=== PATIENT | female | born 1965 | race American Indian/Alaskan Native ===

== ENCOUNTER 2017-12-05 08:48 | Outpatient (CLI) | payer OTHER ==
--- NOTE | 2017-12-05 09:23 | XRay Report ---
XRAY RIGHT SHOULDER THREE VIEWS: 12/05/17 08:48:00 CLINICAL: Right shoulder pain. FINDINGS: Normal glenohumeral alignment and normal glenohumeral joint. Normal AC joint. No fracture or dislocation. No bone lesion. Normal soft tissues. IMPRESSION: Normal.
== END 2017-12-05 08:49 | disposition home or self-care (01) ==
LOC: SPVIMAG 08:48
PROVIDERS: ATTEND Orthopaedic Surgery
DX: M25.511 Pain in right shoulder (principal)